=== PATIENT | male | born 1960 | race African-American/Black ===

== ENCOUNTER 2019-05-24 17:48 | Inpatient (IN) | payer MEDICAID ==
[~2019-05-24] VITALS: Ht 190.5 cm; Wt 102.6 kg
[2019-05-24] MEDS ORDERED: ESCI10TA PO (18:00)
[2019-05-24] MEDS ORDERED: DOXA2TAB PO (18:00)
[2019-05-24] MEDS ORDERED: CHL25 PO (18:00)
[2019-05-24] MEDS ORDERED: LEVE500T53 PO (18:00)
[2019-05-24] MEDS ORDERED: BISA10SU11 PR (18:00)
[2019-05-24] MEDS ORDERED: HYDR25TA84 PO (18:00)
[2019-05-24] MEDS ORDERED: AMLO10TA7 PO (18:00)
[2019-05-24] MEDS ORDERED: FAMO20 PO (18:00)
[2019-05-24] MEDS ORDERED: CARV25 PO (18:00)
[2019-05-24] MEDS ORDERED: ATOR40TA28 PO (18:00)
[2019-05-24 18:35] LABS: BASOPHILS % (AUTO) 0.8 % (0.0-2.0); EOSINOPHILS % (AUTO) 0.4 % (1.0-6.0); HEMATOCRIT 41.8 % (41-53); LYMPHOCYTES # (AUTO) 2.1 K/uL (1.0-4.8); LYMPHOCYTES % (AUTO) 27.2 % (22.0-44.0); MEAN CORPUSCULAR HEMOGLOBIN 30.5 pg (26.0-34.0); MEAN CORPUSCULAR HGB CONC 33.4 G/dL (31.0-37.0); MEAN CORPUSCULAR VOLUME 91 fL (80-100); MONOCYTES # (AUTO) 0.6 K/uL (0.1-1.0); MONOCYTES % (AUTO) 8.3 % (2.0-9.0); NEUTROPHILS # (AUTO) 4.8 K/uL (1.8-7.7); NEUTROPHILS % (AUTO) 63.3 % (40.0-70.0); PLATELET COUNT (AUTO) 260 K/uL (150-450); RED BLOOD CELL COUNT(AUTO) 4.58 MIL/uL (4.50-5.90); RED CELL DISTRIBUTION WIDTH 13.2 % (11.5-14.5)
[2019-05-24 18:47] LABS: CALCIUM, TOTAL 9.3 mg/dL (8.8-10.5); CREATININE 2.33 mg/dL (0.60-1.30); POTASSIUM 3.3 mmol/L (3.5-5.1)
[2019-05-24 18:53] LABS: ALBUMIN 3.6 g/dL (3.4-5.0); BILIRUBIN,TOTAL 0.4 mg/dL (0.1-1.0); TOTAL PROTEIN, SERUM 7.7 g/dL (6.4-8.2)
[2019-05-24 18:57] LABS: RAPID GROUP A STREP NEGATIVE (NEGATIVE)
[2019-05-24] MEDS ORDERED: POTASSIUM CHLORIDE 20 MEQ ER TABLET PO ONE ×2 (19:00→23:30)
[2019-05-24 19:03] LABS: INFLUENZA TYPE A NEGATIVE FOR TYPE A (NEGATIVE); INFLUENZA TYPE B NEGATIVE FOR TYPE B (NEGATIVE)
[2019-05-24] MEDS ORDERED: 0.9% SODIUM CHLORIDE 10 ML SYRINGE IVP PRN (20:15)
[2019-05-24] MEDS ORDERED: ACETAMINOPHEN 325 MG TABLET PO PRN ×2 (20:15→23:15)
[2019-05-24] MEDS ORDERED: ONDANSETRON HCL 4 MG/2 ML VIAL IVP PRN ×2 (20:15→23:15)
[2019-05-24 21:54] VITALS: BP 119/64
[2019-05-24] MEDS ORDERED: IPRATROPIUM BROMIDE 0.5 MG/2.5 ML NEB SOLUTION NEB PRN (23:15)
[2019-05-24] MEDS ORDERED: ALBUTEROL SULFATE 2.5 MG/0.5 ML NEB SOLUTION NEB PRN (23:15)
[2019-05-24] MEDS ORDERED: MAGNESIUM HYDROXIDE SUSPENSION 30 ML UDCUP PO PRN (23:15)
[2019-05-24] MEDS ORDERED: MORPHINE SULFATE 2 MG/ML SYRINGE IVP PRN (23:15)
[2019-05-24] MEDS ORDERED: BISACODYL 10 MG RECTAL RECTAL SUPPOSITORY PR PRN ×2 (23:15)
[2019-05-24 23:45] VITALS: BP 109/51
[2019-05-25] MEDS: HEPARIN SODIUM,PORCINE 5,000 UNITS/ML VIAL SQ SCH ×3 (00:53→16:04)
[2019-05-25 05:34] VITALS: BP 139/93
[2019-05-25 08:10] VITALS: BP 145/95
[2019-05-25] MEDS: LevETIRAcetam 500 MG TABLET PO SCH ×2 (08:34→20:44)
[2019-05-25] MEDS: AmLODIPine BESYLATE 10 MG TABLET PO SCH (08:34)
[2019-05-25] MEDS: ATORVASTATIN CALCIUM 40 MG TABLET PO SCH (08:34)
[2019-05-25] MEDS: ESCITALOPRAM OXALATE 10 MG TABLET PO SCH (08:35)
[2019-05-25] MEDS: FAMOTIDINE 20 MG TABLET PO SCH (08:38)
[2019-05-25] MEDS: CARVEDILOL 25 MG TABLET PO SCH ×2 (08:40→20:43)
[2019-05-25] MEDS: DOXAZOSIN MESYLATE 2 MG TABLET PO SCH ×2 (08:40→20:44)
[2019-05-25 08:41] LABS: APPEARANCE,URINE CLEAR (CLEAR); BILIRUBIN,URINE NEGATIVE (NEGATIVE); GLUCOSE, URINE (UA) NEGATIVE (NEGATIVE); KETONES,URINE NEGATIVE (NEGATIVE); LEUKOCYTE ESTERASE ,URINE NEGATIVE (NEGATIVE); NITRATE,URINE NEGATIVE (NEGATIVE); OCCULT BLOOD,URINE NEGATIVE (NEGATIVE); PROTEIN,URINE NEGATIVE (NEGATIVE); UROBILINOGEN,URINE 0.2 mg/dL (<=1.0)
[2019-05-25] MEDS: HydrALAZINE HCL 25 MG TABLET PO SCH ×3 (08:44→20:44)
[2019-05-25] MEDS ORDERED: CHLORTHALIDONE 25 MG TABLET PO SCH (09:00)
[2019-05-25] MEDS ORDERED: FAMOTIDINE 20 MG TABLET PO SCH (09:00)
[2019-05-25] MEDS: HYDROCODONE/ACETAMINOPHEN 5-325 MG TABLET PO PRN (11:46)
[2019-05-25] MEDS: DOCUSATE SODIUM 100 MG CAPSULE PO SCH ×2 (11:46→20:43)
[2019-05-25 12:16] VITALS: BP 144/90
[2019-05-25] MEDS ORDERED: SPIRONOLACTONE 25 MG TABLET PO SCH (15:15)
[2019-05-25 15:48] VITALS: BP 143/91
[2019-05-25] MEDS ORDERED: BUMETANIDE 0.25 MG/ML 4 ML VIAL IVP SCH (16:00)
[2019-05-25] MEDS: RINGERS SOLUTION,LACTATED 1,000 ML IV SCH (17:20)
[2019-05-25] MEDS: ZOLPIDEM TARTRATE 5 MG TABLET PO PRN (20:44)
[2019-05-25 20:50] VITALS: BP 150/85
[2019-05-26] VITALS (7 sets, daily range): BP systolic 131–172; BP diastolic 75–112
[2019-05-26] MEDS: HEPARIN SODIUM,PORCINE 5,000 UNITS/ML VIAL SQ SCH ×4 (00:15→23:01)
[2019-05-26] MEDS: RINGERS SOLUTION,LACTATED 1,000 ML IV SCH (05:06)
[2019-05-26 07:49] LABS: ALANINE AMINOTRANSFERASE 22 U/L (12-78); ALBUMIN 3.2 g/dL (3.4-5.0); ALKALINE PHOSPHATASE 70 U/L (46-116); ANION GAP 7 mmol/L (8-16); ASPARTATE AMINOTRANSFERASE 28 U/L (15-37); BILIRUBIN,TOTAL 0.4 mg/dL (0.1-1.0); CALCIUM, TOTAL 8.6 mg/dL (8.8-10.5); CARBON DIOXIDE 30 mmol/L (22-29); CHLORIDE 102 mmol/L (98-107); GLOMERULAR FILTR. RATE CALC > 60 mL/min (>60); GLUCOSE,RANDOM 96 mg/dL (70-110); POTASSIUM 3.4 mmol/L (3.5-5.1); SODIUM SERUM 139 mmol/L (136-145); TOTAL PROTEIN, SERUM 6.6 g/dL (6.4-8.2); UREA NITROGEN, BLOOD 19 mg/dL (7-18)
[2019-05-26] MEDS: FAMOTIDINE 20 MG TABLET PO SCH (07:57)
[2019-05-26] MEDS: LevETIRAcetam 500 MG TABLET PO SCH ×2 (07:57→20:17)
[2019-05-26] MEDS: AmLODIPine BESYLATE 10 MG TABLET PO SCH (07:57)
[2019-05-26] MEDS: ESCITALOPRAM OXALATE 10 MG TABLET PO SCH (07:57)
[2019-05-26] MEDS: CARVEDILOL 25 MG TABLET PO SCH ×2 (07:57→20:17)
[2019-05-26] MEDS: ATORVASTATIN CALCIUM 40 MG TABLET PO SCH (07:57)
[2019-05-26] MEDS: DOXAZOSIN MESYLATE 2 MG TABLET PO SCH ×2 (07:58→20:17)
[2019-05-26] MEDS: HydrALAZINE HCL 25 MG TABLET PO SCH ×3 (07:58→20:17)
[2019-05-26 08:45] LABS: CREATININE,URINE RANDOM 148.2 mg/dL (30.0-125.0)
[2019-05-26] MEDS: DOCUSATE SODIUM 100 MG CAPSULE PO SCH ×2 (09:00→20:17)
[2019-05-26] MEDS ORDERED: POTASSIUM CHLORIDE 10 MEQ ER TABLET PO ONE (10:00)
[2019-05-26] MEDS ORDERED: SODIUM CHLORIDE 0.9% 1,000 ML IV ONE (10:45)
[2019-05-26] MEDS: ZOLPIDEM TARTRATE 5 MG TABLET PO PRN (20:17)
[2019-05-27 06:07] VITALS: BP 129/75
[2019-05-27 07:34] VITALS: BP 138/73
[2019-05-27] MEDS: AmLODIPine BESYLATE 10 MG TABLET PO SCH (08:30)
[2019-05-27] MEDS: DOCUSATE SODIUM 100 MG CAPSULE PO SCH ×2 (08:30→19:53)
[2019-05-27] MEDS: LevETIRAcetam 500 MG TABLET PO SCH ×2 (08:30→19:53)
[2019-05-27] MEDS: HEPARIN SODIUM,PORCINE 5,000 UNITS/ML VIAL SQ SCH ×2 (08:30→15:53)
[2019-05-27] MEDS: ATORVASTATIN CALCIUM 40 MG TABLET PO SCH (08:30)
[2019-05-27] MEDS: FAMOTIDINE 20 MG TABLET PO SCH (08:30)
[2019-05-27] MEDS: CARVEDILOL 25 MG TABLET PO SCH ×2 (08:31→19:53)
[2019-05-27] MEDS: DOXAZOSIN MESYLATE 2 MG TABLET PO SCH ×2 (08:31→19:53)
[2019-05-27] MEDS: HydrALAZINE HCL 25 MG TABLET PO SCH ×3 (08:31→19:53)
[2019-05-27] MEDS: ESCITALOPRAM OXALATE 10 MG TABLET PO SCH (08:31)
[2019-05-27] MEDS: HYDROCODONE/ACETAMINOPHEN 5-325 MG TABLET PO PRN ×3 (10:49→19:53)
[2019-05-27 11:20] VITALS: BP 135/75
[2019-05-27 15:09] LABS: APPEARANCE,URINE CLEAR (CLEAR); BILIRUBIN,URINE NEGATIVE (NEGATIVE); GLUCOSE, URINE (UA) NEGATIVE (NEGATIVE); KETONES,URINE NEGATIVE (NEGATIVE); LEUKOCYTE ESTERASE ,URINE NEGATIVE (NEGATIVE); NITRATE,URINE NEGATIVE (NEGATIVE); OCCULT BLOOD,URINE NEGATIVE (NEGATIVE); PROTEIN,URINE NEGATIVE (NEGATIVE)
[2019-05-27 15:21] VITALS: BP 133/76
[2019-05-27] MEDS: ZOLPIDEM TARTRATE 5 MG TABLET PO PRN (19:53)
[2019-05-27 19:58] VITALS: BP 153/118
[2019-05-28] MEDS: HEPARIN SODIUM,PORCINE 5,000 UNITS/ML VIAL SQ SCH ×4 (00:16→23:45)
[2019-05-28 00:21] VITALS: BP 130/74
[2019-05-28 06:08] LABS: ANION GAP 4 mmol/L (8-16); CARBON DIOXIDE 33 mmol/L (22-29); CHLORIDE 98 mmol/L (98-107); CREATININE 1.15 mg/dL (0.60-1.30); GLOMERULAR FILTR. RATE CALC > 60 mL/min (>60); GLUCOSE,RANDOM 93 mg/dL (70-110); POTASSIUM 3.2 mmol/L (3.5-5.1); SODIUM SERUM 135 mmol/L (136-145); UREA NITROGEN, BLOOD 16 mg/dL (7-18)
[2019-05-28 08:02] VITALS: BP 146/89
[2019-05-28] MEDS: FAMOTIDINE 20 MG TABLET PO SCH (09:02)
[2019-05-28] MEDS: ESCITALOPRAM OXALATE 10 MG TABLET PO SCH (09:02)
[2019-05-28] MEDS: CARVEDILOL 25 MG TABLET PO SCH ×2 (09:03→20:37)
[2019-05-28] MEDS: LevETIRAcetam 500 MG TABLET PO SCH ×2 (09:03→20:36)
[2019-05-28] MEDS: AmLODIPine BESYLATE 10 MG TABLET PO SCH (09:03)
[2019-05-28] MEDS: DOXAZOSIN MESYLATE 2 MG TABLET PO SCH ×2 (09:03→20:37)
[2019-05-28] MEDS: ATORVASTATIN CALCIUM 40 MG TABLET PO SCH (09:03)
[2019-05-28] MEDS: HydrALAZINE HCL 25 MG TABLET PO SCH ×3 (09:03→20:37)
[2019-05-28] MEDS: DOCUSATE SODIUM 100 MG CAPSULE PO SCH ×2 (09:03→21:00)
[2019-05-28 11:54] VITALS: BP 144/98
[2019-05-28] MEDS: POTASSIUM CHL 10 MEQ/WATER 50 ML IV SCH ×4 (12:45→14:45)
[2019-05-28 16:02] VITALS: BP 126/81
[2019-05-28] MEDS ORDERED: POTASSIUM CHLORIDE 20 MEQ ER TABLET PO ONE (17:00)
[2019-05-28 20:15] VITALS: BP 135/82
[2019-05-28 23:55] VITALS: BP 147/93
[2019-05-29 05:50] VITALS: BP 120/76
[2019-05-29 06:30] LABS: ALANINE AMINOTRANSFERASE 22 U/L (12-78); ALBUMIN 3.5 g/dL (3.4-5.0); ALKALINE PHOSPHATASE 75 U/L (46-116); ANION GAP 7 mmol/L (8-16); ASPARTATE AMINOTRANSFERASE 22 U/L (15-37); BILIRUBIN,TOTAL 0.3 mg/dL (0.1-1.0); CALCIUM, TOTAL 9.3 mg/dL (8.8-10.5); CARBON DIOXIDE 32 mmol/L (22-29); CHLORIDE 99 mmol/L (98-107); CREATININE 1.28 mg/dL (0.60-1.30); GLOMERULAR FILTR. RATE CALC > 60 mL/min (>60); GLUCOSE,RANDOM 114 mg/dL (70-110); POTASSIUM 3.2 mmol/L (3.5-5.1); SODIUM SERUM 138 mmol/L (136-145); TOTAL PROTEIN, SERUM 7.4 g/dL (6.4-8.2); UREA NITROGEN, BLOOD 20 mg/dL (7-18)
[2019-05-29 07:19] LABS: ALPHA-1 (IFE & PEP) 0.3 g/dL (0.0-0.4); BETA (IFE & ELP) 1.2 g/dL (0.7-1.3); IGM (IMMUNOFIXATION) 52 mg/dL (20-172)
[2019-05-29 07:45] VITALS: BP 125/89
[2019-05-29] MEDS ORDERED: POTASSIUM CHLORIDE 20 MEQ ER TABLET PO ONE (08:45)
[2019-05-29] MEDS: DOCUSATE SODIUM 100 MG CAPSULE PO SCH ×2 (09:00→21:00)
[2019-05-29] MEDS: LevETIRAcetam 500 MG TABLET PO SCH ×2 (09:01→21:19)
[2019-05-29] MEDS: AmLODIPine BESYLATE 10 MG TABLET PO SCH (09:02)
[2019-05-29] MEDS: ATORVASTATIN CALCIUM 40 MG TABLET PO SCH (09:02)
[2019-05-29] MEDS: HydrALAZINE HCL 25 MG TABLET PO SCH ×3 (09:02→21:19)
[2019-05-29] MEDS: CARVEDILOL 25 MG TABLET PO SCH ×2 (09:02→21:19)
[2019-05-29] MEDS: ESCITALOPRAM OXALATE 10 MG TABLET PO SCH (09:02)
[2019-05-29] MEDS: FAMOTIDINE 20 MG TABLET PO SCH (09:02)
[2019-05-29] MEDS: DOXAZOSIN MESYLATE 2 MG TABLET PO SCH ×2 (09:02→21:19)
[2019-05-29] MEDS: HEPARIN SODIUM,PORCINE 5,000 UNITS/ML VIAL SQ SCH ×3 (09:03→23:43)
[2019-05-29 19:32] VITALS: BP 149/93
[2019-05-29] MEDS: ATORVASTATIN CALCIUM 20 MG TABLET PO SCH (21:19)
[2019-05-29 23:27] VITALS: BP 138/79
[2019-05-30 04:18] VITALS: BP 141/86
[2019-05-30 05:57] LABS: ANION GAP 7 mmol/L (8-16); CALCIUM, TOTAL 8.9 mg/dL (8.8-10.5); CARBON DIOXIDE 27 mmol/L (22-29); CHLORIDE 104 mmol/L (98-107); CREATININE 1.38 mg/dL (0.60-1.30); GLOMERULAR FILTR. RATE CALC > 60 mL/min (>60); GLUCOSE,RANDOM 144 mg/dL (70-110); PHOSPHORUS 1.6 mg/dL (2.5-4.9); POTASSIUM 3.5 mmol/L (3.5-5.1); SODIUM SERUM 138 mmol/L (136-145); UREA NITROGEN, BLOOD 33 mg/dL (7-18)
[2019-05-30] MEDS: HydrALAZINE HCL 25 MG TABLET PO SCH ×3 (08:36→21:01)
[2019-05-30] MEDS: DOXAZOSIN MESYLATE 2 MG TABLET PO SCH ×2 (08:36→21:01)
[2019-05-30] MEDS: ESCITALOPRAM OXALATE 10 MG TABLET PO SCH (08:36)
[2019-05-30] MEDS: FAMOTIDINE 20 MG TABLET PO SCH (08:36)
[2019-05-30] MEDS: CARVEDILOL 25 MG TABLET PO SCH ×2 (08:36→21:01)
[2019-05-30] MEDS: AmLODIPine BESYLATE 10 MG TABLET PO SCH (08:37)
[2019-05-30] MEDS: LevETIRAcetam 500 MG TABLET PO SCH ×2 (08:37→21:01)
[2019-05-30] MEDS: ASPIRIN 81 MG CHEWABLE TABLET PO SCH (08:37)
[2019-05-30] MEDS: HEPARIN SODIUM,PORCINE 5,000 UNITS/ML VIAL SQ SCH (08:37)
[2019-05-30] MEDS: DOCUSATE SODIUM 100 MG CAPSULE PO SCH (08:38)
[2019-05-30] MEDS ORDERED: MAGNESIUM SULFATE 4 GM/WATER 100 ML IV ONE (08:45)
[2019-05-30] MEDS ORDERED: SODIUM PHOS,M-BASIC-D-BASIC 30 MMOL in DEXTROSE 5%-WATER 250 ML IV ONE (08:45)
[2019-05-30 09:17] VITALS: BP 136/83
[2019-05-30 11:56] VITALS: BP 116/70
[2019-05-30 13:55] LABS: BASOPHILS % (AUTO) 0.7 % (0.0-2.0); EOSINOPHILS % (AUTO) 0.1 % (1.0-6.0); HEMATOCRIT 34.2 % (41-53); HEMOGLOBIN 11.3 g/dL (13.5-17.5); LYMPHOCYTES # (AUTO) 1.7 K/uL (1.0-4.8); LYMPHOCYTES % (AUTO) 13.4 % (22.0-44.0); MEAN CORPUSCULAR HEMOGLOBIN 30.3 pg (26.0-34.0); MEAN CORPUSCULAR HGB CONC 32.9 G/dL (31.0-37.0); MEAN CORPUSCULAR VOLUME 92 fL (80-100); MONOCYTES # (AUTO) 0.9 K/uL (0.1-1.0); MONOCYTES % (AUTO) 6.9 % (2.0-9.0); NEUTROPHILS % (AUTO) 78.9 % (40.0-70.0); PLATELET COUNT (AUTO) 203 K/uL (150-450); RED BLOOD CELL COUNT(AUTO) 3.72 MIL/uL (4.50-5.90); RED CELL DISTRIBUTION WIDTH 13.6 % (11.5-14.5)
[2019-05-30 15:30] VITALS: BP 128/79
[2019-05-30 21:01] VITALS: BP 130/70
[2019-05-30] MEDS: ATORVASTATIN CALCIUM 20 MG TABLET PO SCH (21:01)
[2019-05-31 05:24] LABS: ALPHA-1 (IFE & PEP) 0.2 g/dL (0.0-0.4); BETA (IFE & ELP) 1.2 g/dL (0.7-1.3); GAMMA GLOBULINS (IFE & ELP) 1.1 g/dL (0.4-1.8); IGM (IMMUNOFIXATION) 51 mg/dL (20-172)
[2019-05-31 05:32] LABS: BASOPHILS % (AUTO) 0.5 % (0.0-2.0); EOSINOPHILS % (AUTO) 0.9 % (1.0-6.0); HEMATOCRIT 32.1 % (41-53); HEMOGLOBIN 10.8 g/dL (13.5-17.5); LYMPHOCYTES # (AUTO) 1.8 K/uL (1.0-4.8); LYMPHOCYTES % (AUTO) 18.3 % (22.0-44.0); MEAN CORPUSCULAR HGB CONC 33.8 G/dL (31.0-37.0); MEAN CORPUSCULAR VOLUME 92 fL (80-100); MONOCYTES # (AUTO) 0.7 K/uL (0.1-1.0); MONOCYTES % (AUTO) 7.3 % (2.0-9.0); NEUTROPHILS # (AUTO) 7.3 K/uL (1.8-7.7); PLATELET COUNT (AUTO) 186 K/uL (150-450); RED CELL DISTRIBUTION WIDTH 13.8 % (11.5-14.5)
[2019-05-31 05:42] VITALS: BP 136/72
[2019-05-31] MEDS ORDERED: SODIUM PHOS,M-BASIC-D-BASIC 30 MMOL in DEXTROSE 5%-WATER 250 ML IV ONE (07:30)
[2019-05-31] MEDS ORDERED: MAGNESIUM SULFATE 4 GM/WATER 100 ML IV ONE (07:30)
[2019-05-31 08:00] VITALS: BP 158/98
[2019-05-31 08:32] LABS: ANION GAP 8 mmol/L (8-16); CALCIUM, TOTAL 8.1 mg/dL (8.8-10.5); CARBON DIOXIDE 26 mmol/L (22-29); CHLORIDE 106 mmol/L (98-107); CREATININE 1.12 mg/dL (0.60-1.30); GLOMERULAR FILTR. RATE CALC > 60 mL/min (>60); GLUCOSE,RANDOM 101 mg/dL (70-110); POTASSIUM 3.6 mmol/L (3.5-5.1); SODIUM SERUM 140 mmol/L (136-145); UREA NITROGEN, BLOOD 22 mg/dL (7-18)
[2019-05-31] MEDS: AmLODIPine BESYLATE 10 MG TABLET PO SCH (08:36)
[2019-05-31] MEDS: LevETIRAcetam 500 MG TABLET PO SCH ×2 (08:36→20:40)
[2019-05-31] MEDS: FAMOTIDINE 20 MG TABLET PO SCH (08:36)
[2019-05-31] MEDS: CARVEDILOL 25 MG TABLET PO SCH ×2 (08:36→20:40)
[2019-05-31] MEDS: HydrALAZINE HCL 25 MG TABLET PO SCH ×3 (08:36→20:40)
[2019-05-31] MEDS: ESCITALOPRAM OXALATE 10 MG TABLET PO SCH (08:36)
[2019-05-31] MEDS: DOXAZOSIN MESYLATE 2 MG TABLET PO SCH ×2 (08:36→20:40)
[2019-05-31] MEDS: ASPIRIN 81 MG CHEWABLE TABLET PO SCH (08:38)
[2019-05-31 09:24] LABS: PHOSPHORUS 3.3 mg/dL (2.5-4.9)
[2019-05-31] MEDS ORDERED: MAGNESIUM SULFATE 2 GM/WATER 50 ML IV ONE (10:00)
[2019-05-31 12:17] VITALS: BP 120/74
[2019-05-31 13:08] LABS: ALBUMIN URINE (ELP) Note: %
[2019-05-31 16:02] VITALS: BP 132/88
[2019-05-31] MEDS: ATORVASTATIN CALCIUM 20 MG TABLET PO SCH (20:40)
[2019-05-31 20:41] VITALS: BP 134/80
[2019-06-01] VITALS (7 sets, daily range): BP systolic 113–166; BP diastolic 69–97
[2019-06-01 07:29] LABS: BASOPHILS % (AUTO) 0.5 % (0.0-2.0); EOSINOPHILS % (AUTO) 1.5 % (1.0-6.0); HEMATOCRIT 33.3 % (41-53); HEMOGLOBIN 11.1 g/dL (13.5-17.5); LYMPHOCYTES # (AUTO) 2.6 K/uL (1.0-4.8); LYMPHOCYTES % (AUTO) 30.7 % (22.0-44.0); MEAN CORPUSCULAR HEMOGLOBIN 30.8 pg (26.0-34.0); MEAN CORPUSCULAR HGB CONC 33.4 G/dL (31.0-37.0); MEAN CORPUSCULAR VOLUME 92 fL (80-100); MONOCYTES # (AUTO) 0.7 K/uL (0.1-1.0); NEUTROPHILS % (AUTO) 59.3 % (40.0-70.0); PLATELET COUNT (AUTO) 207 K/uL (150-450); RED BLOOD CELL COUNT(AUTO) 3.61 MIL/uL (4.50-5.90); RED CELL DISTRIBUTION WIDTH 13.9 % (11.5-14.5)
[2019-06-01 07:52] LABS: ANION GAP 8 mmol/L (8-16); CALCIUM, TOTAL 8.3 mg/dL (8.8-10.5); CARBON DIOXIDE 29 mmol/L (22-29); CHLORIDE 107 mmol/L (98-107); CREATININE 1.07 mg/dL (0.60-1.30); FERRITIN 61 ng/mL (26-388); GLOMERULAR FILTR. RATE CALC > 60 mL/min (>60); GLUCOSE,RANDOM 93 mg/dL (70-110); PHOSPHORUS 2.8 mg/dL (2.5-4.9); POTASSIUM 3.4 mmol/L (3.5-5.1); SODIUM SERUM 144 mmol/L (136-145); UREA NITROGEN, BLOOD 19 mg/dL (7-18)
[2019-06-01 07:58] LABS: % IRON SATURATION 19.6 % (30-44); IRON, SERUM 46 mcg/dL (50-175); TOTAL IRON BINDING CAPACITY 234 mcg/dL (250-450)
[2019-06-01] MEDS: HydrALAZINE HCL 25 MG TABLET PO SCH ×3 (08:27→20:17)
[2019-06-01] MEDS: CARVEDILOL 25 MG TABLET PO SCH ×2 (08:27→20:17)
[2019-06-01] MEDS: ASPIRIN 81 MG CHEWABLE TABLET PO SCH (08:28)
[2019-06-01] MEDS: ESCITALOPRAM OXALATE 10 MG TABLET PO SCH (08:28)
[2019-06-01] MEDS: DOXAZOSIN MESYLATE 2 MG TABLET PO SCH ×2 (08:28→20:17)
[2019-06-01] MEDS: LevETIRAcetam 500 MG TABLET PO SCH ×2 (08:29→20:17)
[2019-06-01] MEDS: FAMOTIDINE 20 MG TABLET PO SCH (08:29)
[2019-06-01] MEDS: AmLODIPine BESYLATE 10 MG TABLET PO SCH (08:29)
[2019-06-01] MEDS ORDERED: MAGNESIUM SULFATE 2 GM in DEXTROSE 5%-WATER 50 ML IV ONE (11:45)
[2019-06-01] MEDS ORDERED: POTASSIUM CHLORIDE 10 MEQ ER TABLET PO ONE (11:45)
[2019-06-01] MEDS: ATORVASTATIN CALCIUM 20 MG TABLET PO SCH (20:17)
[2019-06-01] MEDS ORDERED: INFLUENZA VIRUS VACCINE QVS 2019-20 (3YR+)/PF 60 MCG/0.5 ML SYRINGE IM ONE (20:30)
== END 2019-06-01 22:03 | DRG 469 ==
LOC: EMS 17:50 → 4E 20:00
PROVIDERS: ADMIT Hospitalist; ATTEND Hospitalist
DX: N17.9 Acute kidney failure, unspecified (principal); R65.11 Systemic inflammatory response syndrome (SIRS) of non-infectious origin with acute organ dysfunction; E83.39 Other disorders of phosphorus metabolism; E78.5 Hyperlipidemia, unspecified; E87.6 Hypokalemia; F32.9 Major depressive disorder, single episode, unspecified; N40.0 Benign prostatic hyperplasia without lower urinary tract symptoms; D63.8 Anemia in other chronic diseases classified elsewhere; E83.42 Hypomagnesemia; E66.9 Obesity, unspecified; F41.9 Anxiety disorder, unspecified; F91.9 Conduct disorder, unspecified; G40.909 Epilepsy, unspecified, not intractable, without status epilepticus; I12.9 Hypertensive chronic kidney disease with stage 1 through stage 4 chronic kidney disease, or unspecified chronic kidney disease; N18.9 Chronic kidney disease, unspecified; Z59.0 Homelessness; Z79.899 Other long term (current) drug therapy; Z87.891 Personal history of nicotine dependence; Z68.28 Body mass index [BMI] 28.0-28.9, adult; Z88.0 Allergy status to penicillin; Z86.73 Personal history of transient ischemic attack (TIA), and cerebral infarction without residual deficits; Z23 Encounter for immunization
CPT/HCPCS: 76770; 82271; 82570; 82728; 82784; 83540; 83550; 83735; 84100; 84132; 84155; 84156; 84165; 84166; 84300; 86334; 87430; 87804; 97116; 97162; 97166; 97535; G0378; J1644; J2405; J3475; J3480; J3490; J7060; J7120